=== PATIENT | male | born 1960 | race Caucasian/White ===

== ENCOUNTER 2023-11-23 22:08 | Emergency (ER) | payer BC, SELFPAY ==
[2023-11-23 22:12] VITALS: BP 104/72; BMI 31.2
[2023-11-23 22:13] VITALS: BP 104/72
--- NOTE | 2023-11-23 22:24 | ED.GENMED ---
History of Present Illness
General
Chief Complaint: Fainting/Passed Out
Source: patient, spouse and ambulance crew
Exam Limitations: none
Time Seen by Provider: 11/23/23 22:14
Nursing documentation reviewed up to this point in time: agreed with
History of Present Illness
History of Present Illness:
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 Patient reports that he was at dinner tonight and had 1 drink and some trouble fries and began to feel dizzy and had
syncopal event. He had associated nausea and vomiting x 1�he reports he felt much better after he vomited. He did not have any chest pain or shortness of breath. Did not have any palpitations. Denies any headache. Denies any abdominal or flank
pain. He says that he had a similar reaction in the past when he ate something with truffle. Also of note he reports that he was fasting for most of the day today. Per EMS he had soft blood pressure 98/50 on their arrival he was given Zofran and
IV fluids and he says that he is feeling much better; now says that he is fatigued and only has some very mild nausea.
Review of Systems
Review of Systems
All Other Systems: ROS reviewed and negative except as documented in HPI and ROS
Constitutional: Denies fever
Respiratory: Denies trouble breathing
Cardiac: Reports diaphoresis and syncope; Denies chest pain or palpitations
ABD/GI: Reports nausea and vomiting; Denies abdominal pain or diarrhea
: Denies flank pain
Musculoskeletal: Denies neck pain or back pain
Neurological: Denies headache
Phy Exam
Physical Exam
Physical Exam:
General: Awake, alert, oriented x3; no acute distress
Head: Normocephalic, atraumatic
Eyes: Conjunctiva normal, pupils equal round and reactive to light bilaterally
Throat: Airway intact, moist mucous membranes
Neck: Trachea midline
Lungs: Clear to auscultation bilaterally, no wheezing, rales, rhonchi
Heart: Regular rate and rhythm, no murmurs, gallops, or rubs appreciated
Abd: Soft, non distended, no palpable mass, no tenderness
Neuro: No gross deficits
Extremities: No edema in extremities, equal pulses in all extremities
Scores
Heart Failure Risk
Heart Failure Risk Score: Not Applicable
Heart Score for Chest Pain Patients
STEMI patient?: Not applicable
Withdrawal Assessment of Alcohol
Withdrawal Assessment Completed?: Not applicable
Course
Orders/Labs/Results
Orders:
Orders
11/23/23 22:10
EKG [Electrocardiogram (*1)] Urgent
Reason for Study: Syncope
11/23/23 22:11
EKG- Treatment ONCE
11/23/23 22:27
Complete Blood Count/With Diff Urgent
Comprehensive Metabolic Panel Urgent
11/23/23 22:42
Troponin I Urgent
Abnormal Lab Results
11/23/23
22:27
RBC 4.38 L 10^6/uL
(4.70-6.10)
Hct 37.7 L %
(39.0-52.0)
BUN 24 H mg/dl
(9-20)
Glucose 116 H mg/dl
(70-99)
Total Bilirubin 1.4 H mg/dl
(0.2-1.3)
11/23/23 22:27
11/23/23 22:27
Vital Signs
Initial and Last Documented VS:
Initial Vital Signs
Pulse Resp
77 11
11/23/23 22:11 11/23/23 22:11
Last Documented Vital Signs
Temp Pulse Resp BP Pulse Ox
36.4 C 74 17 104/72 99
11/23/23 22:12 11/23/23 22:30 11/23/23 22:30 11/23/23 22:13 11/23/23 22:31
MDM/Problems Addressed
Differential Diagnosis Includes:
Dysrhythmia, vasovagal syncope, hypoglycemia, electrolyte derangement
MDM/Problems Addressed:
63-year-old male presents after syncopal event as described above. He had associated nausea and vomited x 1, received Zofran and fluids from EMS and now feels much better. Vital signs are normal here. Physical exam as above. EKG shows sinus
rhythm with no AV block, no Brugada, normal QTc, no delta wave and no signs of acute ischemia. Will plan to check labs including a CBC and a CMP. Will monitor on telemetry. Reassess after the above. History seems consistent with vasovagal
syncope.
Patient feeling well on reassessment, vitals have been stable. Requesting discharge. No clear indication for admission at this point. 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
return precautions. Stable for discharge.
*Pulse Oximetry
Patient hypoxic: no
*EKG
Interpreted by ED Provider?: Yes
Heart Rate: 74
Rate: normal
Rhythm: sinus
[place]: normal axis
Interval: normal interval
QRS Pattern: normal QRS
Ischemia: no ischemia
*Critical Care Note
Total Time (30-74mins, 75-104mins- exclusive of procedures): Not Applicable
Data Reviewed
Source: patient, spouse and ambulance crew
Patient Management
Social determinants of health affecting care: Strong social support
ED Attending Note
-
Portions of this chart may have been created with voice recognition software.� Occasional wrong word or��sound alike� substitutions may have occurred due to the inherent limitations of voice recognition software.
Discharge Plan
Departure
Patient Disposition: Home (Routine Discharge)
Date of Disposition: 11/23/23
Time of Disposition: 23:17
Patient with high blood pressure during this ER visit?: No
Discharge Problem:
Syncope
Instructions: Syncope (Fainting) (DC)
Referrals:
THOMAS MEAD [Other]
Activity Restrictions/Additional Instructions:
Thank you for visiting the Emergency Department at [facility].
1. Please schedule a follow up appointment as directed. Call first thing tomorrow morning to make an appointment.
2. If indicated, please take your medications as instructed and indicated on discharge paperwork.
3. If any of your symptoms do not improve, or persist, or become more severe within 6-12 hours, please return to the emergency department for further care.
4. Please return to the emergency department if you develop a headache, neck pain/stiffness, fever greater than 100.4F, chest pain, shortness of breath, persistent nausea, vomiting, slurred speech, difficulty walking, numbness/tingling, weakness,
signs of infection or any other symptoms that are worrisome to you.
Please call [phone] if you have any questions.
Interventions
Interventions:
*Risk Screen - Suicide Last Done: 11/23/23 22:12
*General Assessment Last Done: 11/23/23 22:12
*Neglect/Abuse Screening Last Done: 11/23/23 22:12
ED- Fall Risk Assessment Last Done: 11/23/23 22:31
*ED COVID-19 Vaccine History Last Done: 11/23/23 22:12
ED- Cardiac Assessment Last Done: 11/23/23 22:31
ED- Neurological Assessment Last Done: 11/23/23 22:31
Discharge Date and Time
Print Language: PALESTINIAN
[2023-11-23 22:36] VITALS: BP 114/76
[2023-11-23 22:39] LABS: % Basophils 0.9 % (0-2); % Eosinophils 3.9 % (0-6); % Immature Granulocytes 0.3 % (0-0.5); % Monocytes 8.7 % (1.7-9.3); % Neutrophils 53.2 % (42.2-75.2); Absolute Basophils 0.1 10^3/uL (0-0.2); Absolute Eosinophils 0.2 10^3/uL (0-0.7); Absolute Lymphocytes 1.9 10^3/uL (1.2-3.4); Absolute Monocytes 0.5 10^3/uL (0.1-0.6); Absolute Neutrophils 3.1 10^3/uL (1.4-6.5); Hematocrit 37.7 % (39.0-52.0); Hemoglobin 13.3 g/dL (13.0-18.0); Mean Corp Hgb Conc. 35.3 g/dL (33.0-37.0); Mean Corpuscular Hgb 30.4 pg (27.0-31.0); Mean Corpuscular Volume 86.1 fL (80.0-94.0); Mean Platelet Volume 9.5 fL (7.4-10.4); Nucleated Red Blood Cells % 0 % (-); Platelet Count 233 10^3/uL (130-400); Red Blood Cell Count 4.38 10^6/uL (4.70-6.10); Red Cell Dist. Width 13.1 % (11.5-14.5); White Blood Cell Count 5.8 10^3/uL (4.8-10.8)
[2023-11-23 23:00] VITALS: BP 114/67
[2023-11-23 23:01] LABS: ALT (SGPT) 17 U/L (0-50); AST (SGOT) 22 U/L (17-59); Albumin 4.1 g/dl (3.5-5.0); Alkaline Phosphatase 45 U/L (38-126); Blood Urea Nitrogen 24 mg/dl (9-20); Calcium 9.1 mg/dl (8.4-10.2); Carbon Dioxide 23 mmol/L (22-30); Chloride 104 mmol/L (98-107); Estimated Creatinine Clearance 108 ml/min; Glucose 116 mg/dl (70-99); Potassium 3.8 mmol/L (3.5-5.1); Sodium 142 mmol/L (135-145); Total Bilirubin 1.4 mg/dl (0.2-1.3); Total Protein 6.5 g/dl (6.3-8.2); eGFR > 60.00
[2023-11-23 23:15] LABS: Troponin I < 0.012 ng/ml
== END 2023-11-23 23:25 | disposition home or self-care (01) ==
LOC: EMR 22:08
PROVIDERS: EMERGENCY PHYSICIAN Emergency Medicine
DX: R55 Syncope and collapse (principal); R11.2 Nausea with vomiting, unspecified; R61 Generalized hyperhidrosis
CPT/HCPCS: 99283; 80053; 84484; 85025; 93005